=== PATIENT | male | born 2000 | race Caucasian/White ===

== ENCOUNTER 2019-02-25 13:30 | Emergency (ER) | payer MEDICAID ==
[2019-02-25] MEDS ORDERED: Ondansetron 4 MG/2 ML SDV IVPUSH ONE (14:32)
--- NOTE | 2019-02-25 14:40 | EDM.PDOC ---
ED HPI GENERAL MEDICAL PROBLEM - General Chief Complaint: Gastrointestinal Problem Stated Complaint: STOMACH PAIN, VOMITTING Time Seen by Provider: 02/25/19 14:10 Source of Information: Reports: Patient History Limitations: Reports: No Limitations - History of Present Illness INITIAL COMMENTS - FREE TEXT/NARRATIVE: 18 yo male presents to ER 3 day hx of vomiting ABD pain without diarrhea. pain is generalized upper pain. denies fever or chills. - Related Data Allergies Allergy/AdvReac Type Severity Reaction Status Date / Time No Known Allergies Allergy Verified 02/25/19 14:04 Home Meds: Home Meds NK [No Known Home Meds] 02/25/19 [History] Past Medical History - Past Health History Medical/Surgical History: Denies Medical/Surgical History - Past Surgical History Other GI Surgeries/Procedures: family hx of gallbladder issues Social & Family History - Tobacco Use Smoking Status *Q: Never Smoker - Caffeine Use Caffeine Use: Reports: Energy Drinks, Soda Other Caffeine Use: +2 cans a day - Recreational Drug Use Recreational Drug Use: Yes Drug Use in Last 12 Months: Yes Recreational Drug Type: Reports: Marijuana/Hashish ED ROS GENERAL - Review of Systems Review Of Systems: See Below Constitutional: Denies: Fever, Chills Respiratory: Denies: Shortness of Breath, Wheezing Cardiovascular: Denies: Chest Pain Endocrine: Reports: Fatigue GI/Abdominal: Reports: Abdominal Pain, Nausea, Vomiting. Denies: Anorexia, Black Stool, Bloody Stool, Diarrhea : Denies: Dysuria ED EXAM, GI/ABD - Physical Exam Exam: See Below Exam Limited By: No Limitations General Appearance: Alert, WD/WN, Mild Distress Head: Atraumatic, Normocephalic Neck: Normal Inspection, Supple, Non-Tender, Full Range of Motion. No: Lymphadenopathy (R), Lymphadenopathy (L) Respiratory/Chest: No Respiratory Distress, Lungs Clear, Normal Breath Sounds, No Accessory Muscle Use, Chest Non-Tender. No: Crackles, Rhonchi, Wheezing Cardiovascular: Regular Rate, Rhythm, No Murmur GI/Abdominal Exam: Normal Bowel Sounds, Tender (upper ABD) Course - Vital Signs Last Recorded V/S: Last Vital Signs Temp 35.8 C 02/25/19 14:11 Pulse 49 L 02/25/19 14:11 Resp 14 02/25/19 14:11 BP 108/58 L 02/25/19 14:11 Pulse Ox 98 02/25/19 14:11 - Orders/Labs/Meds Orders: Active Orders 24 hr Category Date Time Status Iopamidol [Isovue-300 (61%)] Med 02/25/19 15:15 Active 100 ml IV . DIRECTED Sodium Chloride 0.9% [Normal Saline] 1,000 ml Med 02/25/19 14:45 Active IV ASDIRECTED Sodium Chloride 0.9% [Normal Saline] 100 ml Med 02/25/19 15:15 Active IV ASDIRECTED Medication Orders Sodium Chloride (Normal Saline) 1,000 mls @ 999 mls/hr IV ASDIRECTED NATE Last Admin: 02/25/19 14:48 Dose: 999 mls/hr Sodium Chloride (Normal Saline) 100 mls @ 3 mls/sec IV ASDIRECTED NATE Last Admin: 02/25/19 15:58 Dose: 3 mls/sec Iopamidol (Isovue-300 (61%)) 100 ml IV . DIRECTED NATE Last Admin: 02/25/19 15:50 Dose: 100 ml Labs: Laboratory Tests 02/25/19 02/25/19 02/25/19 Range/Units 14:46 14:46 16:49 WBC 13.5 H (4.5-11.0) K/uL RBC 5.36 (4.30-5.90) M/uL Hgb 15.5 H (12.0-15.0) g/dL Hct 46.2 (40.0-54.0) % MCV 86 (80-98) fL MCH 29 (27-31) pg MCHC 34 (32-36) % Plt Count 362 (150-400) K/uL Neut % (Auto) 86 H (36-66) % Lymph % (Auto) 10 L (24-44) % [place] % (Auto) 4 (2-6) % Eos % (Auto) 0 L (2-4) % Baso % (Auto) 0 (0-1) % Sodium 141 (140-148) mmol/L Potassium 3.7 (3.6-5.2) mmol/L Chloride 102 (100-108) mmol/L Carbon Dioxide 24 (21-32) mmol/L Anion Gap 15.1 H (5.0-14.0) mmol/L BUN 16 (7-18) mg/dL Creatinine 1.0 (0.8-1.3) mg/dL Est Cr Clr Drug Dosing 86.94 mL/min Estimated GFR (MDRD) > 60 (>60) Glucose 125 H (74-106) mg/dL Lactic Acid 3.7 H (0.4-2.0) mmol/L Calcium 9.5 (8.5-10.1) mg/dL Total Bilirubin 1.1 H (0.2-1.0) mg/dL AST 36 (15-37) U/L ALT 42 (12-78) U/L Alkaline Phosphatase 85 (46-116) U/L Total Protein 8.2 (6.4-8.2) g/dL Albumin 4.5 (3.4-5.0) g/dL Globulin 3.7 H (2.3-3.5) g/dL Albumin/Globulin Ratio 1.2 (1.2-2.2) Urine Color (YELLOW) Urine Appearance (CLEAR) Urine pH (5.0-8.0) Ur Specific [place] (1.008-1.030) Urine Protein (NEGATIVE) mg/dL Urine Glucose (UA) (NEGATIVE) mg/dL Urine Ketones (NEGATIVE) mg/dL Urine Occult Blood (NEGATIVE) Urine Nitrite (NEGATIVE) Urine Bilirubin (NEGATIVE) Urine Urobilinogen (0.2-1.0) EU/dL Ur Leukocyte Esterase (NEGATIVE) Urine RBC (0-5) Urine WBC (0-5) Ur Epithelial Cells Amorphous Sediment Urine Bacteria Urine Mucus 02/25/19 Range/Units 17:01 WBC (4.5-11.0) K/uL RBC (4.30-5.90) M/uL Hgb (12.0-15.0) g/dL Hct (40.0-54.0) % MCV (80-98) fL MCH (27-31) pg MCHC (32-36) % Plt Count (150-400) K/uL Neut % (Auto) (36-66) % Lymph % (Auto) (24-44) % [place] % (Auto) (2-6) % Eos % (Auto) (2-4) % Baso % (Auto) (0-1) % Sodium (140-148) mmol/L Potassium (3.6-5.2) mmol/L Chloride (100-108) mmol/L Carbon Dioxide (21-32) mmol/L Anion Gap (5.0-14.0) mmol/L BUN (7-18) mg/dL Creatinine (0.8-1.3) mg/dL Est Cr Clr Drug Dosing mL/min Estimated GFR (MDRD) (>60) Glucose (74-106) mg/dL Lactic Acid (0.4-2.0) mmol/L Calcium (8.5-10.1) mg/dL Total Bilirubin (0.2-1.0) mg/dL AST (15-37) U/L ALT (12-78) U/L Alkaline Phosphatase (46-116) U/L Total Protein (6.4-8.2) g/dL Albumin (3.4-5.0) g/dL Globulin (2.3-3.5) g/dL Albumin/Globulin Ratio (1.2-2.2) Urine Color Yellow (YELLOW) Urine Appearance Clear (CLEAR) Urine pH 7.0 (5.0-8.0) Ur Specific [place] 1.015 (1.008-1.030) Urine Protein Negative (NEGATIVE) mg/dL Urine Glucose (UA) Normal (NEGATIVE) mg/dL Urine Ketones 80 H (NEGATIVE) mg/dL Urine Occult Blood Negative (NEGATIVE) Urine Nitrite Negative (NEGATIVE) Urine Bilirubin Negative (NEGATIVE) Urine Urobilinogen 1 (0.2-1.0) EU/dL Ur Leukocyte Esterase Negative (NEGATIVE) Urine RBC Not seen (0-5) Urine WBC 0-5 (0-5) Ur Epithelial Cells Not seen Amorphous Sediment Not seen Urine Bacteria Not seen Urine Mucus Not seen Meds: Medications Generic Name Dose Route Start Last Admin Trade Name Freq PRN Reason Stop Dose Admin Sodium Chloride 1,000 mls @ 999 mls/hr 02/25/19 14:45 02/25/19 14:48 Normal Saline IV 999 mls/hr ASDIRECTED NATE Administration Sodium Chloride 100 mls @ 3 mls/sec 02/25/19 15:15 02/25/19 15:58 Normal Saline IV 3 mls/sec ASDIRECTED NATE Administration Iopamidol 100 ml 02/25/19 15:15 02/25/19 15:50 Isovue-300 (61%) IV 100 ml . DIRECTED NATE Administration Discontinued Medications Generic Name Dose Route Start Last Admin Trade Name Mariam PRN Reason Stop Dose Admin Lorazepam 1 mg 02/25/19 15:11 02/25/19 15:24 Ativan IVPUSH 02/25/19 15:12 1 mg ONETIME ONE Administration Ondansetron HCl 4 mg 02/25/19 14:32 02/25/19 14:48 Zofran IVPUSH 02/25/19 14:33 4 mg ONETIME ONE Administration Sodium Chloride 10 ml 02/25/19 15:15 02/25/19 15:58 Saline Flush FLUSH 02/25/19 15:16 10 ml ONETIME ONE Administration - Re-Assessments/Exams Free Text/Narrative Re-Assessment/Exam: 02/25/19 17:35 mildly elevated WBC, CT shows enteritis, UA no indicative of UTI but does show significant dehydration with 80 ketones. Given 1 Liter of fluids offered another liter however pt would like to head home. He will drip sips of fluid clear liquid diet until he has 8 hour period of time without emesis the advance diet as tolerated. Zofran for nausea as needed Departure - Departure Time of Disposition: 17:38 Disposition: Home, Self-Care 01 Condition: Good Clinical Impression: Gastroenteritis - Discharge Information *PRESCRIPTION DRUG MONITORING PROGRAM REVIEWED*: Not Applicable *COPY OF PRESCRIPTION DRUG MONITORING REPORT IN PATIENT MELISSA: Not Applicable Instructions: Dehydration, Adult, [id number] Referrals: PCP,None [Primary Care Provider] - Forms: ED Department Discharge Additional Instructions: zofran 4 mg every 8 hours as needed for nausea sips of fluid for rehydration advance diet as tolerated, clear liquids until you have an 8 hour period without vomiting follow-up with [facility] primary care provider if illness continues - My Orders Last 24 Hours: My Active Orders 02/25/19 14:45 Sodium Chloride 0.9% [Normal Saline] 1,000 ml IV ASDIRECTED 02/25/19 15:15 Iopamidol [Isovue-300 (61%)] 100 ml IV . DIRECTED Sodium Chloride 0.9% [Normal Saline] 100 ml IV ASDIRECTED - Assessment/Plan Last 24 Hours: My Active Orders 02/25/19 14:45 Sodium Chloride 0.9% [Normal Saline] 1,000 ml IV ASDIRECTED 02/25/19 15:15 Iopamidol [Isovue-300 (61%)] 100 ml IV . DIRECTED Sodium Chloride 0.9% [Normal Saline] 100 ml IV ASDIRECTED
[2019-02-25] MEDS ORDERED: Sodium Chloride 0.9% 1,000 ML IV SCH (14:45)
[2019-02-25] MEDS ORDERED: LORazepam 2 MG/ML SDV IVPUSH ONE (15:11)
[2019-02-25] MEDS ORDERED: Sodium Chloride 0.9% 10 ML Syringe FLUSH ONE (15:15)
[2019-02-25] MEDS ORDERED: Iopamidol 612 MG/ML 100 ML Bottle IV SCH (15:15)
[2019-02-25] MEDS ORDERED: Sodium Chloride 0.9% 100 ML IV SCH (15:15)
--- NOTE | 2019-02-25 16:39 | CRLCT ---
INDICATION: elevated WBC and pain Indication: Elevated white blood cell count. Abdominal pain. Technique: CT of the abdomen pelvis. 100 cc of Isovue-300 IV. Coronal/sagittal reconstruction images. Comparison: None. Findings: Lung bases: No pleural or pericardial effusion. The heart size is normal. There is no acute airspace disease. There is no basilar pneumothorax. Abdomen/pelvis: Liver is not entirely included on the field of view. Where visualized, it is normal. There is no solid hepatic mass. No dilation of intrahepatic biliary radicals. No perihepatic ascites. Spleen size is normal, measuring up to 7.9 cm in maximum AP dimension. No adrenal mass. There are symmetric nephrograms. There is no solid renal mass or perinephric fluid collection. No pancreatic mass, pancreatic duct dilation, or glandular atrophy. Small amount of free fluid in the pelvis. No free air. There is collapse of the colon, which mimics wall thickening. There is no mucosal hyper enhancement or perienteric edema. There is mild engorgement of vasa recta, with questionable fold thickening within the small bowel. Consider enteritis. The appendix is normal in caliber, seen best on image 94 series 2. This is also seen on image 33 of series 3. No secondary signs for appendicitis. There is no pelvic sidewall lymphadenopathy. No adenopathy by size criteria in the retroperitoneum or gastrohepatic ligament. Visceral artery branches are patent. No portal vein thrombosis. The splenic vein and SMV are patent. Small sclerotic lesions in the proximal femora, which are most likely benign bone islands. No suspicious bone lesions are seen. On sagittal reconstruction images, vertebral body heights are maintained. Impression: 1. Questionable fold thickening within the small bowel, with a trace amount of pelvic ascites, and engorgement of vasa recta. 2. Consider a small bowel enteritis. 3. There is no obstruction, free air, pneumatosis, or portal venous gas. 4. Normal caliber appendix. No adjacent inflammatory changes. Dictated by Deep Cruz MD @ 02/25/2019 4:38:20 PM Please note that all CT scans at this facility use dose modulation, iterative reconstruction, and/or weight-based dosing when appropriate to reduce radiation dose to as low as reasonably achievable. Dictated by: Deep Cruz MD @ 02/25/2019 16:38:48 (Electronically Signed)
== END 2019-02-25 18:03 | disposition home or self-care (01) ==
LOC: JP.ED 13:30
DX: K52.9 Noninfective gastroenteritis and colitis, unspecified (principal)
CPT/HCPCS: 36415; 74177; 80053; 81001; 83605; 85025; 96361; 96374; 96375; 99284; J2060; J2405; J7030; Q9967